=== PATIENT | female | born 1975 | race Caucasian/White ===

== ENCOUNTER 2022-07-19 10:27 | Inpatient (IN) | payer OTHER ==
[2022-07-19 10:31] VITALS: BMI 23.0
[2022-07-19 11:59] LABS: BASO % 0.9 % (0-2.0); EOS % 1.4 % (0-4.5); HEMATOCRIT 15.7 % (32.4-45.2); LYMPH % 26.1 % (8-40); MCHC 27.3 g/dl (32.0-36.0); MEAN CELL VOLUME 60.1 fl (80-96); MEAN PLT VOLUME 9.4 fl (7.5-11.1); MONO % 6.4 % (3.8-10.2); NEUT % 65.2 % (42.8-82.8); PLATELET COUNT 260 10^3/uL (134-434); RBC 2.61 M/mm3 (3.60-5.2); RDW 21.4 % (11.6-15.6); WHITE BLOOD COUNT 4.3 K/mm3 (4.0-10.0)
[2022-07-19 12:00] LABS: INR 1.33 (0.83-1.09); PROTHROMBIN TIME (PATIENT) 15.3 SEC (9.7-13.0)
[2022-07-19 12:03] LABS: ACTIVATED PTT 24.5 SECONDS (25.2-36.5); MCH 16.4 pg (25.7-33.7)
[2022-07-19 12:04] LABS: HEMOGLOBIN 4.3 GM/dL (10.7-15.3)
[2022-07-19 12:06] LABS: ALBUMIN 3.3 g/dl (3.4-5.0); BLOOD UREA NITROGEN 5.8 mg/dL (7-18)
[2022-07-19 12:09] LABS: CREATININE 0.5 mg/dL (0.55-1.3)
[2022-07-19 12:11] LABS: BILIRUBIN,TOTAL 0.4 mg/dL (0.2-1); TOT PROT 6.3 g/dl (6.4-8.2)
[2022-07-19 12:51] LABS: ANISOCYTOSIS 3+; MACROCYTOSIS 1+
[2022-07-19] MEDS ORDERED: SODIUM CHLORIDE 1,000 ML IV SCH (16:15)
[2022-07-19 17:34] LABS: URINE APPEARANCE CLEAR; URINE BILIRUBIN NEGATIVE (NEGATIVE); URINE COLOR YELLOW; URINE GLUCOSE (UA) NEGATIVE (NEGATIVE); URINE KETONE NEGATIVE (NEGATIVE); URINE LEUK ESTERASE NEGATIVE (NEGATIVE); URINE NITRITE NEGATIVE (NEGATIVE); URINE PROTEIN NEGATIVE (NEGATIVE); URINE UROBILINOGEN 0.2 mg/dL (0.2-1.0)
[2022-07-19] MEDS ORDERED: FERRIC CARBOXYMALTOSE IVPB ONE (18:00)
[2022-07-19] MEDS ORDERED: SODIUM CHLORIDE IVPB ONE (18:00)
[2022-07-19] MEDS ORDERED: ACETAMINOPHEN 325 MG TABLET (FP) PO PRN (18:16)
[2022-07-19] MEDS ORDERED: ACETAMINOPHEN 325 MG TABLET (FP) ONE (18:25)
[2022-07-19] MEDS ORDERED: IRON SUCROSE INJECTION 300 MG in SODIUM CHLORIDE 235 ML IVPB ONE (20:00)
[2022-07-19 21:00] LABS: HEMATOCRIT 23.9 % (32.4-45.2); HEMOGLOBIN 7.4 GM/dL (10.7-15.3); MCH 21.5 pg (25.7-33.7); MCHC 31.2 g/dl (32.0-36.0); MEAN CELL VOLUME 69.2 fl (80-96); MEAN PLT VOLUME 8.7 fl (7.5-11.1); PLATELET COUNT 245 10^3/uL (134-434); RBC 3.45 M/mm3 (3.60-5.2); RDW 30.8 % (11.6-15.6); WHITE BLOOD COUNT 5.9 K/mm3 (4.0-10.0)
[2022-07-20 07:27] LABS: EOS % 2.1 % (0-4.5); HEMOGLOBIN 7.3 GM/dL (10.7-15.3); LYMPH % 12.1 % (8-40); MCH 21.4 pg (25.7-33.7); MCHC 31.5 g/dl (32.0-36.0); MEAN CELL VOLUME 67.9 fl (80-96); MEAN PLT VOLUME 9.3 fl (7.5-11.1); MONO % 5.2 % (3.8-10.2); NEUT % 79.6 % (42.8-82.8); PLATELET COUNT 252 10^3/uL (134-434); RBC 3.39 M/mm3 (3.60-5.2); WHITE BLOOD COUNT 6.2 K/mm3 (4.0-10.0)
[2022-07-20 07:42] LABS: CALCIUM 8.2 mg/dL (8.5-10.1)
[2022-07-20 07:44] LABS: ALBUMIN 3.1 g/dl (3.4-5.0); BLOOD UREA NITROGEN 7.5 mg/dL (7-18); MAGNESIUM 1.9 mg/dL (1.8-2.4)
[2022-07-20 07:46] LABS: CREATININE 0.4 mg/dL (0.55-1.3)
[2022-07-20 07:48] LABS: BILIRUBIN,TOTAL 0.7 mg/dL (0.2-1)
[2022-07-20 20:06] VITALS: BP 98/53; PULSE 76; RESP 19; TEMP 98
== END 2022-07-20 20:07 | disposition home or self-care (01) | DRG 812 ==
LOC: JER 10:27 → JERBED 13:44
PROVIDERS: ADMIT Internal Medicine; ATTEND Internal Medicine
PROC: 30233N1 Transfusion of Nonautologous Red Blood Cells into Peripheral Vein, Percutaneous Approach (ICD-10-PCS; principal; 2022-07-19)
DX: D50.9 Iron deficiency anemia, unspecified (principal); D25.9 Leiomyoma of uterus, unspecified; N84.0 Polyp of corpus uteri
CPT/HCPCS: 36415; 36430; 71045-TC-FY; 80053; 81003; 82728; 83540; 83550; 83735; 83880; 84100; 84484; 84703; 85025; 85027; 85610; 85730; 86850; 86900; 86901; 86922; 87086; 93005; 93010; 99285-25; C9803-CS; J1756; P9058; U0003; U0005

== ENCOUNTER 2022-08-08 05:23 | Day surgery (SDC) | payer OTHER ==
[2022-08-07 13:53] VITALS: BMI 25.4
[2022-08-08] MEDS ORDERED: ceFAZolin SODIUM 1 GM VIAL ONE (06:43)
[2022-08-08] MEDS ORDERED: GABAPENTIN 300 MG CAPSULE ONE (06:44)
[2022-08-08] MEDS ORDERED: PHENAZOPYRIDINE HCL 100 MG TABLET (FP) ONE (06:44)
[2022-08-08] MEDS ORDERED: GABAPENTIN 300 MG CAPSULE PO ONE (07:00)
[2022-08-08] MEDS ORDERED: CEFAZOLIN 2 GM in DEXTROSE 5%-WATER - 100 ML IVPB ONE (07:00)
[2022-08-08] MEDS ORDERED: ACETAMINOPHEN 1000 MG/100 ML BAG IVPB ONE (07:00)
[2022-08-08] MEDS ORDERED: PHENAZOPYRIDINE HCL 100 MG TABLET (FP) PO ONE (07:00)
[2022-08-08] MEDS ORDERED: TRANEXAMIC ACID 1000 MG/10 ML VIAL IVPUSH ONE (07:00)
[2022-08-08] MEDS ORDERED: PROPOFOL 20 ML ONE (07:11)
[2022-08-08] MEDS ORDERED: ROCURONIUM BROMIDE 50 MG/5 ML SYRINGE ONE (07:11)
[2022-08-08] MEDS ORDERED: FENTANYL CITRATE/PF 50 MCG/ML VIAL ONE ×3 (07:11→11:49)
[2022-08-08] MEDS ORDERED: DEXAMETHASONE SOD PHOSPHATE 4 MG/1 ML VIAL ONE (07:11)
[2022-08-08] MEDS ORDERED: MIDAZOLAM HCL 2 MG/2 ML SINGLE DOSE VIAL ONE (07:11)
[2022-08-08] MEDS ORDERED: LIDOCAINE HCL/PF 2% SDV 5ML VIAL ONE (07:11)
[2022-08-08] MEDS ORDERED: ONDANSETRON 4 MG/2 ML VIAL ONE (07:11)
[2022-08-08] MEDS ORDERED: BUPIVACAINE HCL/PF 0.75% 10 ML VIAL ONE (07:17)
[2022-08-08] MEDS ORDERED: BUPIVACAINE HCL/PF 0.5% (5MG/ML) 10 ML VIAL ONE ×2 (07:18→07:44)
[2022-08-08] MEDS ORDERED: BUPIVACAINE LIPOSOME/PF (EXPAREL) 266 MG/20 ML VIAL ONE (07:18)
[2022-08-08] MEDS ORDERED: KETOROLAC TROMETHAMINE 30 MG/1 ML VIAL ONE (07:52)
[2022-08-08] MEDS ORDERED: TRANEXAMIC ACID 1000 MG/10 ML VIAL ONE (07:58)
[2022-08-08] MEDS ORDERED: ceFAZolin SODIUM 1 GM VIAL IVPB ONE (08:20)
[2022-08-08 08:23] LABS: EOS % 1.6 % (0-4.5); HEMATOCRIT 36.9 % (32.4-45.2); HEMOGLOBIN 11.5 GM/dL (10.7-15.3); LYMPH % 19.2 % (8-40); MCH 24.9 pg (25.7-33.7); MCHC 31.2 g/dl (32.0-36.0); MEAN CELL VOLUME 79.7 fl (80-96); MEAN PLT VOLUME 9.7 fl (7.5-11.1); MONO % 6.5 % (3.8-10.2); NEUT % 71.7 % (42.8-82.8); PLATELET COUNT 253 10^3/uL (134-434); RBC 4.63 M/mm3 (3.60-5.2); RDW 31.3 % (11.6-15.6); WHITE BLOOD COUNT 5.1 K/mm3 (4.0-10.0)
[2022-08-08] MEDS ORDERED: GLYCOPYRROLATE 0.2 MG/1 ML VIAL ONE (09:23)
[2022-08-08] MEDS ORDERED: NEOSTIGMINE METHYLSULFATE 0.5 MG/ML - 10 ML MDV ONE (09:23)
[2022-08-08] MEDS ORDERED: ONDANSETRON 4 MG/2 ML VIAL IVPUSH PRN ×2 (10:25→10:32)
[2022-08-08] MEDS ORDERED: oxyCODONE HCL 5 MG TABLET PO PRN ×4 (10:25→10:32)
[2022-08-08] MEDS ORDERED: PROMETHAZINE HCL 25 MG/1 ML VIAL IVPUSH PRN (10:25)
[2022-08-08] MEDS ORDERED: LACTATED RINGERS SOLUTION 1,000 ML IV SCH (10:30)
[2022-08-08] MEDS ORDERED: LACTATED RINGERS SOLUTION 1,000 ML/1,000 ML INFUS.BAG IV SCH (10:32)
[2022-08-08] MEDS ORDERED: BISACODYL 5 MG TABLET.DR (FP) PO PRN (10:32)
[2022-08-08] MEDS ORDERED: DOCUSATE SODIUM 100 MG CAPSULE (FP) PO PRN (10:32)
[2022-08-08] MEDS ORDERED: SIMETHICONE 80 MG TAB.CHEW (FP) PO PRN (10:32)
[2022-08-08 13:08] VITALS: RESP 18
[2022-08-08] MEDS: ACETAMINOPHEN 500 MG TABLET (FP) PO SCH ×2 (15:24→20:50)
[2022-08-08 15:59] LABS: HEMATOCRIT 38.3 % (32.4-45.2); HEMOGLOBIN 11.8 GM/dL (10.7-15.3); MCH 24.8 pg (25.7-33.7); MCHC 30.9 g/dl (32.0-36.0); MEAN CELL VOLUME 80.2 fl (80-96); MEAN PLT VOLUME 9.7 fl (7.5-11.1); PLATELET COUNT 283 10^3/uL (134-434); RBC 4.78 M/mm3 (3.60-5.2); WHITE BLOOD COUNT 14.5 K/mm3 (4.0-10.0)
[2022-08-08] MEDS ORDERED: CEFAZOLIN 1 GM in DEXTROSE 5%-WATER - 50 ML IVPB SCH (16:00)
[2022-08-08 16:19] LABS: CALCIUM 8.9 mg/dL (8.5-10.1)
[2022-08-08 16:23] LABS: CREATININE 0.6 mg/dL (0.55-1.3)
[2022-08-08] MEDS ORDERED: ACETAMINOPHEN 500 MG TABLET (FP) PO SCH (17:00)
[2022-08-08] MEDS ORDERED: ACETAMINOPHEN 325 MG TABLET (FP) PO SCH (17:00)
[2022-08-08] MEDS ORDERED: IBUPROFEN 800 MG/8 ML IJ IVPB PRN (19:00)
[2022-08-08 21:24] VITALS: BP 100/61; PULSE 71; TEMP 98.9
[2022-08-09] MEDS ORDERED: ENOXAPARIN NA (PORCINE) 40 MG/0.4 ML DISP.SYRIN SQ SCH (10:00)
== END 2022-08-08 21:00 | disposition home or self-care (01) ==
LOC: JASUSAT 05:23 → J3W 12:40 → JASUSAT 21:00
PROVIDERS: ATTEND Obstetrics & Gynecology
PROC: 0UB24ZZ Excision of Bilateral Ovaries, Percutaneous Endoscopic Approach (ICD-10-PCS; 2022-08-08)
PROC: 0UT9FZZ Resection of Uterus, Via Natural or Artificial Opening With Percutaneous Endoscopic Assistance (ICD-10-PCS; principal; 2022-08-08 07:30)
PROC: 0UT7FZZ Resection of Bilateral Fallopian Tubes, Via Natural or Artificial Opening With Percutaneous Endoscopic Assistance (ICD-10-PCS; 2022-08-08 07:30)
DX: D25.9 Leiomyoma of uterus, unspecified (principal); N80.03 Adenomyosis of the uterus; N72 Inflammatory disease of cervix uteri; N83.12 Corpus luteum cyst of left ovary; N83.01 Follicular cyst of right ovary; N88.8 Other specified noninflammatory disorders of cervix uteri
CPT/HCPCS: 36415; 80048; 85025; 85027; 86850; 86900; 86901; 86922; 88302-TC; 88305-TC; 94010; 94760